=== PATIENT | female | born 1935 | race African-American/Black ===

== ENCOUNTER 2021-07-24 09:05 | Emergency (ER) | payer MEDICARE, MEDICAID ==
[~2021-07-24] VITALS: Ht 157.5 cm; Wt 69.0 kg
[~2021-07-24 09:05] MED LIST: ATOR40TA70 PO; HYDR12.529 PO; LISI10TA26 PO; METF750T46 PO; PIOG15TA6 PO
[2021-07-24] MEDS ORDERED: THROMBIN (BOVINE) 5000 UNITS/VIAL TOP ONE (10:00)
[2021-07-24] MEDS ORDERED: CLONIDINE 0.1MG TABLET PO ONE (12:00)
[2021-07-24 13:01] VITALS: BP 145/75
== END 2021-07-24 13:22 | disposition home or self-care (01) ==
LOC: ER 11:39
DX: I16.0 Hypertensive urgency (principal); R04.0 Epistaxis; I10 Essential (primary) hypertension; E11.9 Type 2 diabetes mellitus without complications; Z88.0 Allergy status to penicillin
CPT/HCPCS: 99283; J3490

== ENCOUNTER 2022-11-26 10:14 | Emergency (ER) | payer MEDICARE, MEDICAID ==
[~2022-11-26] VITALS: Ht 154.9 cm; Wt 46.0 kg
[2022-11-26 10:16] VITALS: O2SAT 100
[2022-11-26] MEDS ORDERED: ACETAMINOPHEN 325MG TABLET PO ONE (10:45)
[2022-11-26] MEDS ORDERED: TETANUS, DIPHTHERIA, PERTUSSIS VAC/PF 0.5ML (>10YR OLD) IM ONE (10:45)
[2022-11-26 11:38] VITALS: TEMP 98.8
[2022-11-26 17:13] VITALS: BP 182/135; PULSE 74; RESP 14
== END 2022-11-26 19:11 | disposition home or self-care (01) ==
LOC: ER 10:25
DX: S01.81XA Laceration without foreign body of other part of head, initial encounter (principal); Z88.0 Allergy status to penicillin; E11.9 Type 2 diabetes mellitus without complications; I10 Essential (primary) hypertension; W19.XXXA Unspecified fall, initial encounter; Y93.89 Activity, other specified; Y92.89 Other specified places as the place of occurrence of the external cause; Y99.8 Other external cause status
CPT/HCPCS: 12011; 73130; 90471; 90715; 99285